=== PATIENT | female | born 1945 | race Caucasian/White ===

== ENCOUNTER 2024-07-15 11:57 | Emergency (ER) | payer OTHER, SELFPAY ==
--- NOTE | 2024-07-15 12:18 | EKG_ITS ---
[facility] Test Date: 2024-07-15 Pat Name: RADHA ROQUE Department: Room: - Gender: Female Home Aide: : 1945 Requested By: Christopher Ott (RUBIO) Order Number: [id number] Reading MD: Christopher Ott (BOTTLING ROOM WORKER) Measurements Intervals Basile Rate: 75 P: 79 WI: 168 QRS: 34 QRSD: 77 T: 60 QT: 361 QTc: 404 Interpretive Statements SINUS RHYTHM POSSIBLE LEFT ATRIAL ENLARGEMENT [-0.1mV P-WAVE IN V1/V2] Compared to ECG 06/10/2017 13:42:16 Sinus bradycardia no longer present /store/S0/[id number].pdf
[2024-07-15 12:20] VITALS: BP 123/70; PULSE 80; RESP 16; TEMP 36.8; O2SAT 96
--- NOTE | 2024-07-15 12:21 | XR_ITS ---
Examination: CT brain head without contrast. 2-D sagittal coronal reconstructions Date and time of exam:July 15, 2024 1331 hours Comparison 11/30 2005 INDICATIONS: Headaches dizziness arm paresthesias today CTDI: vol (mGy):43.5 DLP: (mGycm):912 Technique: Multiple CT axial sections of the brain have been obtained, 5 mm slice thickness. Contrast has not been administered. 2-D sagittal, coronal reconstructions have been obtained Low dose protocols were performed. One or more of the following dose reduction techniques were used; automated exposure control, adjustment of the mA and/or KV according to patient size, use of iterative reconstruction technique. Findings: No significant ventricular enlargement. Intra-axial or extra-axial hemorrhage density is not seen. No mass effect or midline shift Basal cisterns are not remarkable. Fourth ventricle is midline. Cranial vault intact. Impression: Negative for acute hemorrhage, mass effect or midline shift As clinically warranted, brain MRI follow-up would best assess for acute ischemic change
--- NOTE | 2024-07-15 12:21 | XR_ITS ---
Examination: PA lateral chest 2 views TECHNIQUE: Upright PA lateral chest 2 views Exam date and time: July 15, 2024 1235 hours Comparison June 10, 2017 INDICATIONS: Coughing chest pressure one week. FINDINGS: Normal heart size Lungs are clear. Left shoulder arthroplasty IMPRESSION: No active disease
--- NOTE | 2024-07-15 12:21 | PD.EDRME ---
Rapid Medical Screening Exam RME Arrival date/time: 07/15/24 11:57 79-year-old female presents to the emergency department today for complaints of fatigue, rapid heart rate and dizziness Chief Complaint: General Adult/Misc Complain Time Seen by Provider: 07/15/24 12:05
[2024-07-15 12:55] LABS: Basophils # (Auto) 0.1 Thou/mm3 (0.0-0.2); Basophils % (Auto) 1 % (0-2.5); Eosinophils # (Auto) 0.1 Thou/mm3 (0.0-0.5); Eosinophils % (Auto) 1 % (0-10); Hemoglobin 13.8 g/dL (12.0-16.0); Immature Granulocytes % (Auto) 0 % (0-0); Immature Granulocytes Auto 0.03 Thou/mm3 (0.00-0.00); Lymphocytes # (Auto) 2.9 Thou/mm3 (1.0-4.8); Lymphocytes % (Auto) 36 % (10-50); Mean Corpuscular HGB Conc 34.5 g/dl (31.0-37.0); Mean Corpuscular Hemoglobin 31.8 pg (25.0-35.0); Mean Corpuscular Volume 92 fL (80-100); Monocytes # (Auto) 0.5 Thou/mm3 (0.0-0.8); Monocytes % (Auto) 6 % (0-12); Neutrophils # (Auto) 4.4 Thou/mm3 (1.8-7.7); Neutrophils % (Auto) 56 % (37-80); Nucleated Red Blood Cell % 0 /100 WBC (0); Platelet Count 455 Thou/mm3 (140-440); RDW Standard Deviation 43.8 fL (36.4-46.3); Red Blood Count 4.34 Miln/mm3 (4.00-5.20)
[2024-07-15 12:57] LABS: Collection Type, Urine Clean Catch
[2024-07-15 13:09] LABS: Partial Thromboplastin Time 30.2 Seconds (22.0-36.0); Prothrombin Time 10.6 Seconds (9.0-12.2)
[2024-07-15 13:10] LABS: Bilirubin,Urine Negative (Negative); Blood,Urine Negative (Negative); Clarity,Urine Clear (Clear/Hazy); Color,Urine Yellow (Lt Yel-Yel); Glucose, Urine Negative (Negative); Ketones,Urine Negative (Negative); Leukocyte Esterase,Urine Positive (Negative); Nitrite,Urine Negative (Negative); PH,Urine 6.5 (5.0-7.0); Protein,Urine Negative (Neg - Trace); RBC,Urine 1 /hpf (0-3); Specific Gravity,Urine 1.024 (1.001-1.035); Squamous Epithelial Cell,Urine < 1 /hpf (0-5); Urobilinogen,Urine Negative mg/dL (0.0-1.0); WBC,Urine 1 /hpf (0-5)
[2024-07-15 13:13] LABS: B-Type Natriuretic Peptide 34 pg/mL (0-100)
[2024-07-15 13:18] LABS: Alanine Aminotransferase 18 U/L (10-49); Albumin, Serum 4.8 gm/dL (3.4-4.8); Albumin/Globulin Ratio 1.9 (1.2-2.2); Alkaline Phosphatase 69 U/L (46-116); Anion Gap 7 (7-16); Aspartate Amino Transferase 24 U/L (0-34); BUN/Creatinine Ratio 14 Ratio (12-20); Bilirubin,Total 0.5 mg/dL (0.3-1.2); Blood Urea Nitrogen 11 mg/dL (9-23); Calcium 9.9 mg/dL (8.3-10.6); Calcium (Corrected) 9.9 mg/dL (8.5-10.1); Carbon Dioxide 29.3 mMol/L (20.0-31.0); Chloride 103 mMol/L (98-107); Creatinine (Component) 0.8 mg/dL (0.6-1.3); Estimated Creatinine Clearance 50.5 mL/min (>60); Globulin 2.5 gm/dL (2.3-3.5); Glucose 134 mg/dL (74-106); Magnesium 2.1 mg/dL (1.6-2.6); Osmolality,Calculated 278 (275-295); Potassium 3.8 mMol/L (3.4-5.1); Sodium 139 mMol/L (136-145); Thyroid Stimulating Hormone 3.95 uIU/mL (0.55-4.78); Total Protein 7.3 gm/dL (5.7-8.2); Troponin I < 0.002 ng/mL (0.0-0.045); eGFR > 60 See Note
[2024-07-15 13:23] LABS: Amphetamine/Methamp Scrn,U Negative (Negative); Barbiturate Screen,Urine Negative (Negative); Benzodiazepines Screen,Urine Negative (Negative); Benzoylecgonine Screen, Ur Negative (Negative); Fentanyl Screen,Urine Negative (Negative); Opiate Screen,Urine Negative (Negative); THC Screen,Urine Negative (Negative)
--- NOTE | 2024-07-15 14:54 | EDNOTE_ITS ---
ED General RME/HPI General Chief complaint: General Adult/Misc Complain Stated complaint: HEAD FOG, HANDS TINGLING, DIZZY, HR RACING Time Seen by Provider: 07/15/24 12:05 Arrival date/time: 07/15/24 11:57 RME / HPI RME / HPI narrative: 07/15/24 11:57 79-year-old female presents to the emergency department today for complaints of fatigue, rapid heart rate and dizziness MD complaint: Patient presenting with 1 week history of stuffiness in the face of the nos Consistency: constant Relieving factors: none Exacerbating factors: none Associated symptoms: denies other symptoms Treatments prior to arrival: none Related Data Previous Rx's ?Medication ?Instructions ?Recorded albuterol sulfate 90 mcg/actuation 2 puff inhalation Q 6H #18 grams 05/06/17 aerosol inhaler promethazine-DM 6.25 mg-15 mg/5 mL 5 ml PO Q6H PRN cou gh #118 mL 05/06/17 oral syrup amoxicillin-potassium clavulanate 1 tab PO BID 10 days #20 tabs 07/15/24 1,000 mg-62.5 mg tablet,ext.rel 12hr (Augmentin XR) cetirizine 10 mg tablet (Zyrtec) 10 mg PO QDAY allergy symptoms 14 07/15/24 days #14 tabs prednisone 20 mg tablet 20 mg PO BID 3 days #6 tabs 07/15/24 Allergies Allergy/AdvReac Type Severity Reaction Status Date / Time No Known Allergies Allergy Verified 07/15/24 12:02 Review of Systems Review of Systems Systems Reviewed: All systems reviewed, normal except as documented ED Exam Narrative Physical exam: General, patient is alert oriented x 4 Not in distress well-nourished Head and neck, atraumatic normocephalic Pupils equal reactive, ENT exam no mucous membranes Neck is supple tracheal stenosis was not large Chest, no chest tenderness Normal air entry bilaterally No added sounds Cardiovascular, normal heart sounds, no murmurs, no gallop, regular rate and rhythm Abdominal, soft nontender no enlarged organs Normal renal angles, bowel sounds are normal no organomegaly Genitourinary, no abdominal hernias, normal genitalia Lower extremity, no edema, no redness, no deformity Musculoskeletal, no joint effusion, no joint tenderness, Neuro, muscle power equal bilaterally, cranial nerves intact, no sensory deficits, no ataxia Skin, no rash no petechiae Course Quality Measures none Orders Category Date Time Status EKG (ED ONLY) *Do not use* NOW Care 07/15/24 12:[address] head/brain wo con Stat Exams 07/15/24 12:21 Completed EKG (ED Only) Stat Exams 07/15/24 12:18 Draft XR chest 2V Stat Exams 07/15/24 12:21 Completed B-Type Natriuretic Peptide Stat Lab 07/15/24 12:40 Completed CBC Stat Lab 07/15/24 12:40 Completed Comprehensive Metabolic Panel Stat Lab 07/15/24 12:40 Completed Drug Screen,Urine Stat Lab 07/15/24 12:50 Completed Free T4 (Free Thyroxine) Stat Lab 07/15/24 12:40 Completed Magnesium Stat Lab 07/15/24 12:40 Completed Partial Thromboplastin Time Stat Lab 07/15/24 12:40 Completed Prothrombin Time with INR Stat Lab 07/15/24 12:40 Completed TSH [Thyroid Stimulating Hormone] Stat Lab 07/15/24 12:40 Completed Troponin I Stat Lab 07/15/24 12:40 Completed Urinalysis Stat Lab 07/15/24 12:50 Completed Vital Signs Vital signs: Vital Signs Temperature 98.3 F 07/15/24 12:20 Pulse Rate 80 07/15/24 12:20 Respiratory Rate 16 07/15/24 12:20 Blood Pressure 123/70 07/15/24 12:20 Pulse Oximetry (%) 96 07/15/24 12:20 Oxygen Delivery Method Room Air 07/15/24 12:20 Discharge Plan Plan Patient Disposition: HOME (Self Care) Prescriptions/Referrals Prescriptions/Med Rec: New amoxicillin-pot clavulanate [Augmentin XR] 1,000-62.5 mg tablet extended release 12 hr 1 tab PO BID 10 Days Qty: 20 0RF prednisone 20 mg tablet 20 mg PO BID 3 Days Qty: 6 0RF Taper: Prednisone Taper 20 mg DAILY for 2 Days and 0 Hour 10 mg DAILY for 2 Days and 0 Hour 5 mg DAILY for 7 Days and 0 Hour cetirizine [Zyrtec] 10 mg tablet 10 mg PO QDAY 14 Days Qty: 14 0RF No Action promethazine-DM 6.25-15 mg/5 mL syrup 5 ml PO Q6H PRN (Reason: cough) Qty: 118 0RF albuterol sulfate 90 mcg/actuation HFA aerosol inhaler 2 puff INH Q6H Qty: 18 0RF Rx Instructions: administer with spacer Referrals: Yeni Eli MD [Primary Care Provider] - In 1 week Problem List Clinical Impression: Sinusitis Patient/Caregiver Discharge Instructions Discharge Activity: activity as tolerated Education Materials: ED Sinusitis (Antibiotic Treatment) Print Language: Citizen Of [place] Stand Alone Forms: [employer] Award Info., Patient Portal Info Letter MDM Narrative MDM hospital course (for use when minimal MDM required): Patient has mild frontal sinusitis No evidence of. No evidence of sepsis Will discharge patient with Augmentin and prednisone and Zyrtec Clinical Information Provided by: patient Medical Records reviewed None Meds/Rx considered, not ordered None Labs/Rad/Tests considered, not ordered Describe: Labs were reviewed including EKG and a chest x-ray all unremarkable EKG showed normal sinus rhythm with normal axis no ischemia with old inferior wall and TX Rate was 60 Chronic Illness/Social Conditions which may negatively complicate care or outcome(s)-explain: None or not applicable EKG Interpretation EKG #1: EKG Interpretation: Normal sinus rhythm no ischemia normal intervals rate 60 and left deviation Imaging Imaging Interpretation(s): Normal chest x-ray
== END 2024-07-15 15:00 | disposition home or self-care (01) ==
PROVIDERS: Nurse Practitioner Primary Care; Emergency Provider Emergency Medicine; PCP Family Medicine
DX: J32.9 Chronic sinusitis, unspecified (principal)
CPT/HCPCS: 36415; 70450; 71046; 80053; 80307; 81001; 83735; 83880; 84439; 84443; 84484; 85025; 85610; 85730; 93005; 99284

== ENCOUNTER → 2024-08-12 | Outpatient (CLI) | payer OTHER, SELFPAY ==
--- NOTE | 2024-08-12 | XR_ITS ---
Examination: Lumbar spine, 5 views Technique: Lumbar spine AP, lateral, coned lateral lower lumbar spine, bilateral obliques 5 views Exam date and time: August 12, 2024 at 1226 hours INDICATIONS: Low back pain months. FINDINGS: Prominent osteopenia Diffuse advanced facet arthropathy Grade 1 anterolisthesis L3 on L4 Moderate to advanced diffuse lumbar degenerative disc disease most severe at L4-L5 IMPRESSION: Moderate to advanced diffuse lumbar degenerative disc disease, most severe at L4-L5
== END | disposition home or self-care (01) ==
PROVIDERS: PCP Family Medicine; Referring Provider Nurse Practitioner Family; Visit Provider Nurse Practitioner Family
DX: M51.360 Other intervertebral disc degeneration, lumbar region with discogenic back pain only (principal)
CPT/HCPCS: 72110

== ENCOUNTER → 2024-11-27 | Outpatient (CLI) | payer MEDICARE, OTHER, SELFPAY ==
--- NOTE | 2024-11-27 16:12 | XR_ITS ---
Examination: Foot, right, 3 views Technique: AP, oblique, lateral views foot, 3 views Date and time of exam: November 27, 2024 1613 hrs. Indications: Right foot pain beginning 3 weeks ago. 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
== END | disposition home or self-care (01) ==
LOC: CDIM 15:59
PROVIDERS: PCP Nurse Practitioner Family; Referring Provider Nurse Practitioner Family; Visit Provider Nurse Practitioner Family
DX: M19.071 Primary osteoarthritis, right ankle and foot (principal); M25.871 Other specified joint disorders, right ankle and foot
CPT/HCPCS: 73630